=== PATIENT | male | born 1975 | race African-American/Black ===

== ENCOUNTER 2020-11-15 02:43 | Emergency (ER) | payer OTHER ==
[~2020-11-15] VITALS: Ht 175.2 cm; Wt 152.2 kg
[2020-11-15 02:51] VITALS: BP 152/98
--- OUTSIDE RECORDS SUMMARY | 2020-11-15 02:51 | XMS REPORT | Clinical Summary ---
Author Author [facility] Organization [facility] Address Unknown Phone Unavailable Care Team Providers Care Tapeman Name Role Phone Gabrielle Vergara MD PCP Allergies Comments Active Allergy Reactions Severity Noted Date Fish Containing Products 04/15/2017 Nuts Anaphylaxis High 08/01/2014 Medications End Date Status Medication Sig Dispensed Refills Start Date Active metoprolol tartrate Take 25 mg by 0 (LOPRESSOR) 25 MG mouth 2 (two) tabletIndications: times a day. hypertension Active amLODIPine (NORVASC) 10 Take 10 mg by 0 MG tablet mouth daily. Active atorvastatin (LIPITOR) 20 Take 20 mg by 0 MG tablet mouth nightly. Active cloNIDine HCl (CATAPRES) Take 1 tablet 30 tablet 0 0.2 mg tablet (0.2 mg 8 total) by mouth 2 (two) times a day as needed (SBP>180). Active Problems Problem Noted Date Renal failure 08/01/2014 Last Assessment & Plan: Formatting of this note might be differ ent from the original. Acute, due to pre-renal azotemia. Continue IVF's. Check urinalysis. Dehydration 08/01/2014 Last Assessment & Plan: Formatting of this note might be differ ent from the original. Secondary to poor oral intake after ton sillectomy (intake inhibited by post-operative pain/odynophagia). Continue IVF hydration. Repeat BMP in the AM. Pain 08/01/2014 Last Assessment & Plan: Formatting of this note might be differ ent from the original. Post-operative pain related to recent t onsillectomy. Liquid hydrocodone/acetaminophen ordere d. IV morphine only to be given for severe pain. Hypertension 08/01/2014 Last Assessment & Plan: Formatting of this note might be differ ent from the original. Uncontrolled at the present; likely exa cerbated by pain. Resume home antihypertensive medication s. Give IV hydralazine if systolic BP rise s above 160 mm Hg. Morbid obesity 08/01/2014 Last Assessment & Plan: Formatting of this note might be differ ent from the original. Diet and exercise modifications to be d iscussed prior to discharge. Social History Date Tobacco Use Types Packs/Day Years Used Never Smoker Smokeless Tobacco: Never Used Comments Alcohol Use Standard Drinks/Week No 0 (1 standard drink = 0.6 o z pure alcohol) Sex Assigned at Date Recorded Not on file Last Filed Vital Signs Reading Time Taken Comments Vital Sign 195/102 08/22/2017 5:[address] myranda antonio h pressure below 200 Blood Pressure 71 08/22/2017 5:35 AM CDT Pulse 36.8 C (98.3 F) 08/22/2017 2:49 AM CDT Temperature 16 08/22/2017 5:35 AM CDT Respiratory Rate 95% 08/22/2017 5:35 AM CDT Oxygen Saturation - - Inhaled Oxygen Concentration 131.5 kg (290 lb) 08/22/2017 2:49 AM CDT Weight 175.3 cm (5' 9") 08/22/2017 2:49 AM CDT Height 42.83 08/22/2017 2:49 AM CDT Body Mass Index Plan of Treatment Health Maintenance Due Date Last Done Comments Td/Tdap# 1975 COVID-19 Vaccine (1) 1989 Influenza Vaccine (#1) 2020 Pneumococcal Vaccine: Aged Out No longer elikemb john based on patient's age to Pediatrics (0 to 5 Years) complete this topic and At-Risk Patients (6 to 64 Years) Results Not on filefrom Last 3 Months Insurance Type Payer Benefit Subscriber ID Effective Phone Address Plan / Dates Group [facility] OUT OF [id number] 5-P AREA PREF resent CARE [facility] OUT OF [id number] 5-P AREA PREF resent CARE [id number] Javad Cupl Personal/F Self [address] (Home) [place], [place] [address] Javad Culp Personal/F Self [address] [place]Home) [place], [place] [address] Advance Directives For more information, please contact: [phone] 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
[2020-11-15] MEDS ORDERED: RX-NEO/POLYB/HC OTIC (CORTISPORIN) SUSP 10 ML BTL OT STA (03:16)
--- NOTE | 2020-11-15 03:21 | ED EENT ---
History of Present Illness General Chief Complaint: Ear Problems Stated Complaint: INSECT IN RIGHT EAR Nursing Triage Note: Patient states that when he was getting out of the car a bug flew into his right ear. Patient states he put peroxide in his ear to try to get it out with no results. Source: patient History of Present Illness Date Seen by Provider: Nov 15, 2020 Time Seen by Provider: 02:48 Initial Comments 45 yo male presents with insect that flew into his right ear as he opened his door to go inside at home. he tried flushing it out at home but was unable to get it to flush out. He did scratch at his ear as well. He continues to hear flapping in his ear. He has no bleeding or drainage from ear. He has high blood pressure but has not taken his meds for last few days to being almost out of meds. Timing/Duration: abrupt Location: ear (R) Associated Symptoms: No change in hearing, No cough, No drooling, No ear drainage, No facial pain/swelling, No fever, No malaise, No nasal congestion/drainage, No poor fluid intake, No poor solids intake, No sinus infection, No sore throat, No tooth pain, No voice change Allergies and Home Medications Allergies Coded Allergies: Fish Containing Products (Verified Allergy, Unknown, 11/15/20) Patient Home Medication List Home Medication List Reviewed: Yes Review of Systems Review of Systems Constitutional: no symptoms reported Eyes: No Symptoms Reported Ears: See HPI Nose: no symptoms reported Mouth: no symptoms reported Throat: no symptoms reported Respiratory: no symptoms reported Skin: no symptoms reported Neurological: No Symptoms Reported Past [id number]-[id number]-Mjhgax Hx Patient Social History Tobacco Use?: No Substance use?: No Alcohol Use?: No Pt feels they are or have been: No Past Medical History Cardiac: Yes Hypertension Endocrine: Yes Diabetes, Non-Insulin dep Physical Exam Vital Signs Vital Signs - First Documented 11/15/20 02:51 Temp 36.7 Pulse 111 Resp 20 B/P (MAP) 152/98 (116) Pulse Ox 95 O2 Delivery Room Air Height, Weight, BMI Height: '" Weight: lbs. oz. kg; 49.00 BMI Method: General Appearance: mild distress, obese Ears: right ear foreign body (insect in EAC); left ear auricle normal, left ear canal normal, left ear TM normal Neurologic/Psychiatric: alert, oriented x 3 Skin: normal color, warm/dry Procedures/Interventions Ear : Ear Location: Right (Right) Foreign Body Removal: FB in the Ear Canal Use of: Irrigation Medications: Coricosporin Otic Progress/Conclusion After verbal consent was obtained from patient Lidocaine was instilled in external auditory canal to numb his ear canal and to drown the insect. Then after letting this set for a few minutes the ear was flushed with warm water and a syringe. He had intact insect removed without difficulty after several flushes of canal. He had no bleeding to canal. Sent with bottle of cortisporin otic drops to use 4 drops to right ear three times a day for next 4 days to help prevent infection. Counseled on follow up and return precautions. Progress/Results/Core Measures Results/Orders My Orders Orders - JUAN LERNER MD Rx-Crow/Poly/Hc Otic Susp (Rx-Cortisporin (11/15/20 03:16) Vital Signs/I&O 11/15/20 02:51 Temp 36.7 Pulse 111 Resp 20 B/P (MAP) 152/98 (116) Pulse Ox 95 O2 Delivery Room Air Blood Pressure Mean: 116 Progress Progress Note : Progress Note Insect foreign body removed from right EAC without complication. Counseled on f ollow up and return precautions Departure Impression Primary Impression: Foreign body in right ear, initial encounter Disposition: 01 HOME, SELF-CARE Condition: Improved Departure-Patient Inst. Decision time for Depature: 03:19 Referrals: NO,LOCAL PHYSICIAN (PCP) Primary Care Physician [facility] Patient Instructions: Foreign Body in the Ear, Child ED, How to Use Ear Drops Add. Discharge Instructions: Use 4 drops of the Cortisporin Otic antibiotic ear drops to right ear 3 times a day for next 4 days to help prevent infection and help with healing of abrasions to ear canal. Ibuprofen or Acetaminophen if needed for pain. Check back with primary care provider or [facility] clinic by calling [phone] if having continued concerns All discharge instructions reviewed with patient and/or family. Voiced understan rosaline. JUAN LERNER MD Nov 15, 2020 03:21
== END 2020-11-15 03:23 | disposition home or self-care (01) ==
LOC: EDUNIT# 02:43 → ER FS 02:47
DX: T16.1XXA Foreign body in right ear, initial encounter (principal); I10 Essential (primary) hypertension; E11.9 Type 2 diabetes mellitus without complications; Z91.14 Patient's other noncompliance with medication regimen
CPT/HCPCS: 99281